=== PATIENT | male | born 1950 | race Caucasian/White ===

== ENCOUNTER 2020-03-12 11:22 | Emergency (ER) | payer MEDICARE, OTHER ==
--- NOTE | 2020-03-12 12:32 | EDM.PDOC ---
<Bridgett Jaimes M - Last Filed: 03/12/20 12:53> ED HPI GENERAL MEDICAL PROBLEM - General Chief Complaint: Eye Problems Stated Complaint: [place] [facility] Time Seen by Provider: 03/12/20 12:27 Source of Information: Reports: Patient, RN, RN Notes Reviewed, Significant Other History Limitations: Reports: No Limitations - History of Present Illness Onset: Today, Sudden Onset Date: 03/12/20 Onset Time: 07:00 Duration: Hour(s): Location: Reports: Other (BL eyes. Double vision) Quality: Reports: Other (None ) Improves with: Reports: None (Covering one eye double vision goes away), Other Worsens with: Reports: None - Related Data Allergies Allergy/AdvReac Type Severity Reaction Status Date / Time No Known Allergies Allergy Verified 03/12/20 12:10 Home Meds: Home Meds Pravastatin [Pravachol] 40 mg PO BEDTIME 03/12/20 [History] amLODIPine [Norvasc] 10 mg PO DAILY 03/12/20 [History] carvediloL [Carvedilol] 25 mg PO BID 03/12/20 [History] metFORMIN [Glucophage] 500 mg PO BEDTIME 03/12/20 [History] traZODone HCl [Trazodone HCl] 50 mg PO BEDTIME 03/12/20 [History] Past Medical History Cardiovascular History: Reports: High Cholesterol, Hypertension Respiratory History: Reports: Asthma, COPD - Past Surgical History GI Surgical History: Reports: Appendectomy Musculoskeletal Surgical History: Reports: Other (See Below) Other Musculoskeletal Surgeries/Procedures:: back surgery Social & Family History - Tobacco Use Smoking Status *Q: Current Every Day Smoker Years of Tobacco use: 60 Packs/Tins Daily: 0.5 - Recreational Drug Use Recreational Drug Use: No ED ROS GENERAL - Review of Systems Review Of Systems: See Below Constitutional: Reports: No Symptoms HEENT: Reports: Vision Change (Double vision when looking out both eyes. ) Respiratory: Reports: No Symptoms Cardiovascular: Reports: No Symptoms Endocrine: Reports: No Symptoms GI/Abdominal: Reports: No Symptoms : Reports: No Symptoms Musculoskeletal: Reports: No Symptoms Skin: Reports: No Symptoms Neurological: Reports: No Symptoms Psychiatric: Reports: No Symptoms Hematologic/Lymphatic: Reports: No Symptoms Immunologic: Reports: No Symptoms ED EXAM GENERAL W FULL EYE - Physical Exam Exam: See Below Exam Limited By: No Limitations General Appearance: Alert, WD/WN, No Apparent Distress Eye Exam: Bilateral Eye: Normal Inspection, PERRL Eyelids: Bilateral: Normal Appearance Conjunctiva & Sclera: Bilateral: Normal Appearance Cornea Exam: Bilateral: Normal Appearance Extraocular Movements: Bilateral: Intact Pupils: Normal Accommodation Pupillary Size: Bilateral: 3 mm Pupillary Reaction: Bilateral: Brisk Head: Normocephalic Respiratory/Chest: No Respiratory Distress, Lungs Clear, Normal Breath Sounds Cardiovascular: Regular Rate, Rhythm Neurological: Alert, Oriented, CN II-XII Intact, Normal Cognition Psychiatric: Normal Affect, Normal Mood Skin Exam: Warm, Dry, Intact, Normal Color, No Rash Course - Orders/Labs/Meds Orders: CT head w/o contrast CT head dictated as age related chronic changes. Nothing acute. Departure - Departure Time of Disposition: 12:54 Disposition: Home, Self-Care 01 Condition: Good Clinical Impression: Double vision with both eyes open - Discharge Information *PRESCRIPTION DRUG MONITORING PROGRAM REVIEWED*: Not Applicable *COPY OF PRESCRIPTION DRUG MONITORING REPORT IN PATIENT ISABELLA: Not Applicable Instructions: Visual Disturbances Referrals: PCP,None [Primary Care Provider] - Forms: ED Department Discharge Additional Instructions: Cat scan of head is negative with chronic changes noted. Nothing acute. If the double vision continues, please get in touch with your eye dr or regular physician. Sepsis Event Note (ED) - Evaluation Sepsis Screening Result: No Definite Risk - Problem List & Annotations (1) Double vision with both eyes open SNOMED Code(s): 011856762 Code(s): H53.2 - DIPLOPIA Status: Acute Onset Date: ~03/12/20 - Problem List Review Problem List Initiated/Reviewed/Updated: Yes - Assessment/Plan Plan: Cat scan of head is negative with chronic changes noted. Nothing acute. If the double vision continues, please get in touch with your eye dr or regular physician. <[employer] - Last Filed: 03/12/20 14:15> Course - Vital Signs Last Recorded V/S: Last Vital Signs Temp 98.5 F 03/12/20 12:14 Pulse 82 03/12/20 12:14 Resp 16 03/12/20 12:14 BP 116/61 03/12/20 12:14 Pulse Ox 92 L 03/12/20 12:14 Departure - Departure Time of Disposition: 13:03 Sepsis Event Note (ED) - Focused Exam Vital Signs: Vital Signs Temp Pulse Resp BP Pulse Ox 03/12/20 12:14 98.5 F 82 16 116/61 92 L 03/12/20 11:53 98.5 F 82 16 116/61 92 L Attestation - Student - Attestation Statement Attestation Statement: I personally performed or re-performed the physical examination and medical decision making. I have verified all student documentation or findings, including history, physical exam and/or medical decision making.
--- NOTE | 2020-03-12 12:49 | CT ---
Head wo Cont CLINICAL HISTORY: Double vision COMPARISON: None TECHNIQUE: Transverse scans were obtained from the base of the skull through the vertex without IV contrast on a multislice, multidetector CT scanner. Auto dosage reduction and iterative reconstruction techniques employed. FINDINGS: No focal abnormal parenchymal densities are identified. There is no mass effect, hemorrhage, or extraaxial collection. There are scattered periventricular and subcortical lucencies bilaterally The basal cisterns and sulci over the convexities are prominent. The ventricles are mildly prominent. IMPRESSION: Age-related atrophic changes Chronic ischemic microvascular changes No acute intracranial findings
== END 2020-03-12 13:04 | disposition home or self-care (01) ==
LOC: JP.ED 11:22
DX: H53.2 Diplopia (principal); I10 Essential (primary) hypertension; E78.00 Pure hypercholesterolemia, unspecified; F17.210 Nicotine dependence, cigarettes, uncomplicated; Z79.899 Other long term (current) drug therapy
CPT/HCPCS: 70450; 70450-26; 99283; 99284-25

== ENCOUNTER → 2021-05-26 | Day surgery (SDC) | payer MEDICARE ==
[~2021-05-26] MED LIST: Albuterol/Ipratropium 3.0-0.5 MG/3 ML Neb Soln NEB ONE; Carvedilol 12.5 MG Tab PO ONE; Dextrose 5%-Lactated Ringers 1,000 ML IV SCH; Propofol 200 MG/20 ML SDV ONE; fentaNYL 100 MCG/2 ML SDV ONE
--- NOTE | 2021-05-27 20:15 | OR ---
DATE OF PROCEDURE: 05/26/2021 SURGEON: Néstor Ramires MD PREOPERATIVE DIAGNOSIS: Iron-deficiency anemia. POSTOPERATIVE DIAGNOSIS: Iron-deficiency anemia associated with: 1. Very mild antral gastritis. 2. Left colonic diverticulosis. 3. No blood or likely bleeding site seen on either upper or lower endoscopy. OPERATIVE PROCEDURES: 1. Esophagogastroduodenoscopy with antral biopsies for CLOtest. 2. Flexible colonoscopy. ANESTHESIA: IV sedation. INDICATIONS FOR PROCEDURE: This is a 71-year-old male presenting with some iron deficiency anemia. Plan is to proceed with upper and lower endoscopy with biopsies as indicated. Potential risks including bleeding and perforation were discussed, and the patient wishes to proceed. DETAILS OF PROCEDURE: The patient was taken to the operating room, placed in a left lateral decubitus position. IV sedation was administered after which the upper GI endoscope was passed orally through the length of the esophagus into the stomach with retroflexion view of the fundus and thereafter through the pyloric channel into the junction of the third and fourth portions of the duodenum. Findings included a normal hypopharynx, larynx, upper esophageal sphincter, and esophageal body. Within the stomach, there was a small amount of retained bile. There was very mild patchy redness in the antrum without erosions or ulcers. The pyloric channel and visualized portions of the duodenum were unremarkable. At this point, biopsies were obtained from the antrum and sent for CLOtest for H pylori. No bleeding from the biopsy site was seen and the procedure was then concluded. Attention was then taken to the colonoscopy. Digital rectal exam was performed and was unremarkable. Colonoscope was then passed into the rectum with retroflexion revealing uncomplicated hemorrhoidal columns. Scope was eventually passed to the cecum. The prep was quite good; only small liquid stool was present to that level. The patient had some uncomplicated left colonic diverticulosis, otherwise there were no areas of polyps or signs of neoplasia and no areas of colitis and the procedure was then concluded. At this point, we will not initiate any additional treatment. He will be following up with his personal physician in roughly 3 weeks. Again, no likely bleeding site was seen on either the upper or lower endoscopy today. Néstor Ramires MD /[id number]
== END ==
LOC: JP.SDS 08:05
PROVIDERS: ATTEND Surgery
DX: K57.30 Diverticulosis of large intestine without perforation or abscess without bleeding (principal); D50.9 Iron deficiency anemia, unspecified; K29.60 Other gastritis without bleeding; K64.8 Other hemorrhoids; F17.200 Nicotine dependence, unspecified, uncomplicated; I10 Essential (primary) hypertension
CPT/HCPCS: 43239; 45378; 87081; 94640; A9270; J2704; J3010; J7121; J7620-GY

== ENCOUNTER 2021-12-11 17:58 | Inpatient (IN) | payer MEDICARE ==
[2021-12-11] MEDS ORDERED: Sodium Chloride 0.9% 10 ML Syringe FLUSH PRN (18:40)
[2021-12-11] MEDS ORDERED: Albuterol 0.083% 2.5 MG/3 ML Neb Soln NEB ONE (18:41)
[2021-12-11 18:48] LABS: CORONAVIRUS COVID-19 NAA NEGATIVE (NEGATIVE)
[2021-12-11] MEDS ORDERED: Albuterol/Ipratropium 3.0-0.5 MG/3 ML Neb Soln NEB SCH (22:05)
[2021-12-11] MEDS ORDERED: Docusate Sodium 100 MG Cap PO PRN (22:05)
[2021-12-11] MEDS ORDERED: Albuterol 0.083% 2.5 MG/3 ML Neb Soln NEB PRN (22:05)
[2021-12-11] MEDS ORDERED: Ondansetron 4 MG Tab.DIS PO PRN (22:05)
[2021-12-11] MEDS ORDERED: Sodium Chloride 0.9% 1,000 ML IV SCH (22:05)
[2021-12-11] MEDS ORDERED: Acetaminophen 325 MG Tab PO PRN (22:05)
[2021-12-11] MEDS ORDERED: Morphine 2 MG/ML SYRINGE IVPUSH PRN (22:05)
[2021-12-11] MEDS ORDERED: oxyCODONE 5 MG Tab PO PRN (22:05)
[2021-12-11] MEDS ORDERED: Bisacodyl 5 MG Tab PO PRN (22:05)
[2021-12-11] MEDS: Carvedilol 12.5 MG Tab PO SCH (23:22)
[2021-12-11] MEDS: Pantoprazole 40 MG Vial IV SCH (23:25)
[2021-12-11] MEDS: methylPREDNISolone Sodium Succinate 40 MG/1 ML SDV IV SCH (23:25)
[2021-12-11] MEDS: cefTRIAXone 1 GM in Sodium Chloride 0.9% 50 ML IV SCH (23:25)
[2021-12-12] MEDS: Doxycycline 100 MG in Sodium Chloride 0.9% 100 ML IV SCH ×3 (00:51→23:14)
[2021-12-12] MEDS: methylPREDNISolone Sodium Succinate 40 MG/1 ML SDV IV SCH ×3 (05:54→22:38)
[2021-12-12] MEDS: Albuterol/Ipratropium 3.0-0.5 MG/3 ML Neb Soln NEB SCH ×4 (06:58→20:31)
[2021-12-12] MEDS: Enoxaparin 40 MG/0.4 ML Syringe SUBCUT SCH (08:26)
[2021-12-12] MEDS: Carvedilol 12.5 MG Tab PO SCH ×2 (08:26→17:00)
[2021-12-12] MEDS: Cholecalciferol (Vitamin D3) 25 MCG Tab PO SCH (08:26)
[2021-12-12] MEDS: amLODIPine 5 MG Tab PO SCH (08:27)
[2021-12-12] MEDS ORDERED: Tamsulosin 0.4 MG Cap.ER PO SCH ×2 (09:00→21:00)
[2021-12-12] MEDS ORDERED: Cholecalciferol (Vitamin D3) Drops 400 Units/1 ML 50 ML Bottle PO SCH (09:00)
[2021-12-12] MEDS ORDERED: Enoxaparin 30 MG/0.3 ML Syringe SUBCUT SCH (09:00)
[2021-12-12] MEDS: Pantoprazole 40 MG Vial IV SCH (20:32)
[2021-12-12] MEDS ORDERED: MELATONIN 5 MG PO SCH (21:00)
[2021-12-12] MEDS ORDERED: Melatonin 3 MG Tab PO SCH (21:00)
[2021-12-12] MEDS ORDERED: traZODone 50 MG Tab PO SCH (21:00)
[2021-12-12] MEDS ORDERED: Pravastatin 20 MG Tab PO SCH (21:00)
[2021-12-12] MEDS: cefTRIAXone 1 GM in Sodium Chloride 0.9% 50 ML IV SCH (22:38)
[2021-12-13] MEDS: methylPREDNISolone Sodium Succinate 40 MG/1 ML SDV IV SCH (06:07)
[2021-12-13] MEDS: Albuterol/Ipratropium 3.0-0.5 MG/3 ML Neb Soln NEB SCH ×2 (08:15→10:50)
[2021-12-13] MEDS: Cholecalciferol (Vitamin D3) 25 MCG Tab PO SCH (08:27)
[2021-12-13] MEDS: Enoxaparin 40 MG/0.4 ML Syringe SUBCUT SCH (08:27)
[2021-12-13] MEDS: amLODIPine 5 MG Tab PO SCH (08:27)
[2021-12-13] MEDS: Carvedilol 12.5 MG Tab PO SCH (08:28)
[2021-12-13] MEDS: Doxycycline 100 MG in Sodium Chloride 0.9% 100 ML IV SCH (10:53)
== END 2021-12-13 13:45 | disposition home or self-care (01) | DRG 189 ==
LOC: JP.ED 17:58 → JP.MS 20:56
PROVIDERS: ADMIT Hospitalist; ATTEND Hospitalist
DX: J18.9 Pneumonia, unspecified organism (principal); J96.21 Acute and chronic respiratory failure with hypoxia; J43.2 Centrilobular emphysema; J20.9 Acute bronchitis, unspecified; E78.00 Pure hypercholesterolemia, unspecified; I10 Essential (primary) hypertension; K21.9 Gastro-esophageal reflux disease without esophagitis; F17.210 Nicotine dependence, cigarettes, uncomplicated; M19.90 Unspecified osteoarthritis, unspecified site; R32 Unspecified urinary incontinence; Z20.822 Contact with and (suspected) exposure to COVID-19; K80.20 Calculus of gallbladder without cholecystitis without obstruction; I25.10 Atherosclerotic heart disease of native coronary artery without angina pectoris; Z66 Do not resuscitate; D35.02 Benign neoplasm of left adrenal gland; Z86.010 Personal history of colon polyps; Z79.82 Long term (current) use of aspirin; Z99.81 Dependence on supplemental oxygen; Z79.52 Long term (current) use of systemic steroids; Z79.899 Other long term (current) drug therapy; Z86.19 Personal history of other infectious and parasitic diseases; Z98.890 Other specified postprocedural states; Z90.49 Acquired absence of other specified parts of digestive tract
CPT/HCPCS: 0241U; 36415; 36600; 71046; 71046-26; 71250; 80048; 80053; 81001; 82803; 83880; 84484; 85025; 85379; 86140; 87086; 93005; 93010; 94640; 99283; 99285-25; A9270-GY; C9113; J0696; J1650; J2920; J3490; J7030; J7620